=== PATIENT | male | born 1995 | race Caucasian/White ===

== ENCOUNTER 2024-07-03 20:18 | Emergency (ER) | payer BC ==
[2024-07-03] MEDS: Naproxen 500 MG Tab PO ONE (21:25)
[2024-07-03] MEDS: Amoxicillin/Clavulanate K 875-125 MG Tab PO ONE (21:25)
== END 2024-07-03 21:30 | disposition home or self-care (01) ==
LOC: JD.ED 20:18
DX: K02.9 Dental caries, unspecified (principal); Z88.8 Allergy status to other drugs, medicaments and biological substances
CPT/HCPCS: 99283; A9270; 99282